=== PATIENT | female | born 1940 | race Caucasian/White ===

== ENCOUNTER 2018-07-30 07:32 | Outpatient (CLI) | payer MEDICARE | END 2018-07-30 23:59 | disposition home or self-care (01) | LOC: D.MAMMO 07:32 | DX: Z12.31 Encounter for screening mammogram for malignant neoplasm of breast (principal) ==

== ENCOUNTER 2019-02-01 10:30 | Outpatient (CLI) | payer MEDICARE | END 2019-02-01 11:00 | disposition home or self-care (01) | LOC: D.MAMMO 10:30 | PROVIDERS: ATTEND Family Medicine | DX: R92.8 Other abnormal and inconclusive findings on diagnostic imaging of breast (principal) ==

== ENCOUNTER 2020-12-11 15:30 | Outpatient (CLI) | payer MEDICARE | END 2020-12-11 23:59 | disposition home or self-care (01) | LOC: D.MAMMO 15:30 | PROVIDERS: ATTEND Family Medicine | DX: Z12.31 Encounter for screening mammogram for malignant neoplasm of breast (principal) ==